=== PATIENT | female | born 1965 | race Two or more races ===

== ENCOUNTER 2016-07-12 14:35 | Emergency (ER) | payer MEDICAID ==
[~2016-07-12] VITALS: Ht 157.5 cm; Wt 56.0 kg
[~2016-07-12 14:35] MED LIST: DIVA500T2 PO; INSU100V5 SQ-INSULIN; INSU100V8 SQ; LISI-167 PO; METF500T4 PO; RISP1TAB3 PO; TRAZ150T68 PO
[2016-07-12 14:44] VITALS: BP 143/52
[2016-07-12 15:19] LABS: HEMOGLOBIN 13.3 g/dL (11.7-16.4)
[2016-07-12 15:29] LABS: BLOOD UREA NITROGEN 22 mg/dL (7-18)
[2016-07-12 15:35] LABS: ACETAMINOPHEN < 2 mcg/mL (10-30); ASPARTATE AMINO TRANSFERASE 18 U/L (15-37)
== END 2016-07-12 16:21 | disposition home or self-care (01) ==
LOC: ED 16:14
DX: F32.9 Major depressive disorder, single episode, unspecified (principal); I10 Essential (primary) hypertension; F41.9 Anxiety disorder, unspecified; E11.65 Type 2 diabetes mellitus with hyperglycemia; F20.9 Schizophrenia, unspecified
CPT/HCPCS: 36415; 80053; 80307; 80329; 84703; 85025; 99284; G0480

== ENCOUNTER 2016-12-27 01:33 | Emergency (ER) | payer MEDICAID ==
[~2016-12-27] VITALS: Ht 157.5 cm; Wt 50.0 kg
[~2016-12-27 01:33] MED LIST changes: +TRAZ150T62 PO; -TRAZ150T68 PO
[2016-12-27 02:13] LABS: HEMATOCRIT 38.3 % (34.6-47.8); HEMOGLOBIN 12.7 g/dL (11.7-16.4); WHITE BLOOD COUNT 8.2 x10^3/uL (3.4-10)
[2016-12-27 02:22] LABS: ASPARTATE AMINO TRANSFERASE 21 U/L (15-37); BLOOD UREA NITROGEN 17 mg/dL (7-18)
[2016-12-27 02:43] LABS: DAU SCREEN DISCLAIMER
[2016-12-27 02:47] LABS: PATH.CAST-FLAG NOT PRESENT; SPERM-FLAG NOT PRESENT; SRC-FLAG NOT PRESENT; XTAL-FLAG NOT PRESENT; YLC-FLAG NOT PRESENT
[2016-12-27 04:50] VITALS: BP 122/65
== END 2016-12-27 04:57 | disposition home or self-care (01) ==
LOC: ED 02:05
DX: E11.649 Type 2 diabetes mellitus with hypoglycemia without coma (principal); F17.200 Nicotine dependence, unspecified, uncomplicated; Z88.0 Allergy status to penicillin
CPT/HCPCS: 36415; 80053; 80307; 81001; 82962; 85025; 99284; G0479

== ENCOUNTER 2017-02-22 08:52 | Emergency (ER) | payer MEDICAID ==
[~2017-02-22] VITALS: Ht 157.5 cm; Wt 52.6 kg
[2017-02-22 08:54] VITALS: BP 150/83
[2017-02-22 09:56] LABS: HEMATOCRIT 43.3 % (34.6-47.8); HEMOGLOBIN 14.9 g/dL (11.7-16.4)
[2017-02-22 10:07] LABS: BLOOD UREA NITROGEN 14 mg/dL (7-18)
[2017-02-22] MEDS ORDERED: SODIUM CHLORIDE 0.9% 1,000ML IVBOLUS ONE (10:30)
== END 2017-02-22 12:09 | disposition home or self-care (01) ==
LOC: ED 11:33
DX: M25.551 Pain in right hip (principal); E11.65 Type 2 diabetes mellitus with hyperglycemia; F20.9 Schizophrenia, unspecified; F31.9 Bipolar disorder, unspecified; G89.29 Other chronic pain; Z91.14 Patient's other noncompliance with medication regimen
CPT/HCPCS: 36415; 73502; 80048; 82040; 85025; 96360; 99285; J7030

== ENCOUNTER 2017-02-25 12:04 | Emergency (ER) | payer MEDICAID ==
[~2017-02-25] VITALS: Ht 157.5 cm; Wt 52.5 kg
[2017-02-25] MEDS ORDERED: PLEASE ENTER HEIGHT AND WEIGHT MC SCH (12:30)
[2017-02-25] MEDS ORDERED: SODIUM CHLORIDE FLUSH 10ML SYR IVF ONE (12:30)
[2017-02-25] MEDS ORDERED: SODIUM CHLORIDE 0.9% 1,000ML IVBOLUS ONE (12:30)
[2017-02-25 12:56] LABS: HEMATOCRIT 45.6 % (34.6-47.8); HEMOGLOBIN 15.5 g/dL (11.7-16.4); WHITE BLOOD COUNT 6.6 x10^3/uL (3.4-10)
[2017-02-25 13:07] LABS: BLOOD UREA NITROGEN 20 mg/dL (7-18)
[2017-02-25 13:53] VITALS: BP 148/72
[2017-02-25] MEDS ORDERED: INSULIN SINGLE DOSE, ER SQ-INSULIN ONE (14:00)
[2017-02-25] MEDS ORDERED: INSULIN REGULAR 100 UNITS/ML, 3ML VIAL ONE (14:22)
== END 2017-02-25 14:45 | disposition home or self-care (01) ==
LOC: ED 14:39
DX: F31.9 Bipolar disorder, unspecified (principal); E10.65 Type 1 diabetes mellitus with hyperglycemia; F41.9 Anxiety disorder, unspecified; F20.9 Schizophrenia, unspecified
CPT/HCPCS: 36415; 80048; 82040; 82962; 85025; 96360; 96361; 99285; J7030

== ENCOUNTER 2017-03-05 19:16 | Observation (INO) | payer MEDICAID ==
[~2017-03-05] VITALS: Ht 157.5 cm; Wt 55.1 kg
[2017-03-05] MEDS ORDERED: SODIUM CHLORIDE 0.9% 1,000 ML IV ONE (19:42)
[2017-03-05] MEDS ORDERED: ONDANSETRON 2MG/ML, 2ML IVPush ONE (20:00)
[2017-03-05] MEDS ORDERED: SODIUM CHLORIDE 0.9% 1,000ML IVBOLUS ONE (20:00)
[2017-03-05] MEDS ORDERED: SODIUM CHLORIDE FLUSH 10ML SYR IVF ONE (20:00)
[2017-03-05 20:07] LABS: HEMATOCRIT 41.7 % (34.6-47.8); HEMOGLOBIN 13.7 g/dL (11.7-16.4); WHITE BLOOD COUNT 6.1 x10^3/uL (3.4-10)
[2017-03-05 20:16] LABS: ASPARTATE AMINO TRANSFERASE 26 U/L (15-37); BLOOD UREA NITROGEN 19 mg/dL (7-18)
[2017-03-05 20:22] LABS: ACETAMINOPHEN < 2 mcg/mL (10-30)
[2017-03-05 20:23] LABS: DAU SCREEN DISCLAIMER
[2017-03-05 20:30] LABS: PATH.CAST-FLAG NOT PRESENT; SPERM-FLAG NOT PRESENT; SRC-FLAG NOT PRESENT; XTAL-FLAG NOT PRESENT; YLC-FLAG NOT PRESENT
[2017-03-05] MEDS ORDERED: ZIPRASIDONE 20 MG INJ IM ONE ×2 (21:57→22:00)
[2017-03-05] MEDS ORDERED: ONDANSETRON 2MG/ML, 2ML ONE (22:41)
[2017-03-05] MEDS ORDERED: OMNIPAQUE 350 MG/ML, 100ML BOTTLE ONE (23:12)
[2017-03-05] MEDS ORDERED: ACETAMINOPHEN 325 MG TABLET PO PRN (23:30)
[2017-03-05] MEDS ORDERED: ONDANSETRON ODT 4 MG PO PRN (23:30)
[2017-03-05] MEDS ORDERED: INSULIN ASPART 100 UNITS/ML, PEN SQ-INSULIN SCH (23:30)
[2017-03-05] MEDS: SODIUM CHLORIDE 0.9% 1,000 ML IV SCH (23:30)
[2017-03-06 00:10] VITALS: BP 156/92
[2017-03-06 00:30] VITALS: BP 156/92
[2017-03-06] MEDS: SODIUM CHLORIDE 0.9% 1,000 ML IV SCH (00:31)
[2017-03-06] MEDS: INSULIN DETEMIR 100 UNITS/ML, PEN SQ-INSULIN SCH ×2 (01:12→21:07)
[2017-03-06 06:14] LABS: HEMATOCRIT 42.7 % (34.6-47.8); HEMOGLOBIN 14.8 g/dL (11.7-16.4); WHITE BLOOD COUNT 5.6 x10^3/uL (3.4-10)
[2017-03-06 06:35] LABS: BLOOD UREA NITROGEN 16 mg/dL (7-18)
[2017-03-06 06:40] LABS: ASPARTATE AMINO TRANSFERASE 21 U/L (15-37)
[2017-03-06] MEDS: INSULIN REGULAR 100 UNITS/ML, 3ML VIAL SQ-INSULIN SCH ×4 (07:00→21:08)
[2017-03-06 08:00] VITALS: BP 105/64
[2017-03-06] MEDS: DIVALPROEX 500 MG TABLET.DR PO SCH ×2 (08:51→21:03)
[2017-03-06] MEDS: metFORMIN 500 MG TABLET PO SCH ×2 (08:51→21:03)
[2017-03-06 12:42] LABS: ASPARTATE AMINO TRANSFERASE 17 U/L (15-37); BLOOD UREA NITROGEN 17 mg/dL (7-18)
[2017-03-06] MEDS ORDERED: RISPERIDONE 1 MG TABLET ONE (19:09)
[2017-03-06 19:15] VITALS: BP 133/71
[2017-03-06] MEDS: TRAZODONE 150MG TABLET PO SCH (21:03)
[2017-03-06] MEDS: RISPERIDONE 1 MG TABLET PO SCH (21:03)
[2017-03-07] MEDS: INSULIN REGULAR 100 UNITS/ML, 3ML VIAL SQ-INSULIN SCH (07:00)
[2017-03-07 07:47] VITALS: BP 128/76
[2017-03-07] MEDS: metFORMIN 500 MG TABLET PO SCH ×2 (08:51→21:22)
[2017-03-07] MEDS: DIVALPROEX 500 MG TABLET.DR PO SCH ×2 (08:51→21:23)
[2017-03-07] MEDS: INSULIN ASPART 100 UNITS/ML, PEN SQ-INSULIN SCH ×3 (12:15→21:27)
[2017-03-07 19:38] VITALS: BP 126/58
[2017-03-07] MEDS: TRAZODONE 150MG TABLET PO SCH (21:22)
[2017-03-07] MEDS: RISPERIDONE 1 MG TABLET PO SCH (21:23)
[2017-03-07] MEDS: INSULIN DETEMIR 100 UNITS/ML, PEN SQ-INSULIN SCH (21:24)
[2017-03-08] MEDS: INSULIN ASPART 100 UNITS/ML, PEN SQ-INSULIN SCH ×4 (07:00→20:58)
[2017-03-08 08:00] VITALS: BP 121/63
[2017-03-08] MEDS: metFORMIN 500 MG TABLET PO SCH ×2 (08:38→21:00)
[2017-03-08] MEDS: DIVALPROEX 500 MG TABLET.DR PO SCH ×2 (08:38→21:00)
[2017-03-08] MEDS ORDERED: SENNA/DOCUSATE TABLET PO PRN (09:30)
[2017-03-08] MEDS: POLYETHYLENE GLYCOL 17 GM PACKET PO SCH (10:30)
[2017-03-08 18:12] LABS: HEMATOCRIT 38.8 % (34.6-47.8); WHITE BLOOD COUNT 5.6 x10^3/uL (3.4-10)
[2017-03-08 18:23] LABS: BLOOD UREA NITROGEN 27 mg/dL (7-18)
[2017-03-08 19:42] VITALS: BP 171/68
[2017-03-08] MEDS: INSULIN DETEMIR 100 UNITS/ML, PEN SQ-INSULIN SCH (20:59)
[2017-03-08] MEDS: RISPERIDONE 1 MG TABLET PO SCH (21:00)
[2017-03-08] MEDS: TRAZODONE 150MG TABLET PO SCH (21:00)
[2017-03-09 07:00] VITALS: BP 124/66
[2017-03-09] MEDS: INSULIN ASPART 100 UNITS/ML, PEN SQ-INSULIN SCH ×4 (07:00→20:52)
[2017-03-09] MEDS: metFORMIN 500 MG TABLET PO SCH ×2 (08:25→20:54)
[2017-03-09] MEDS: DIVALPROEX 500 MG TABLET.DR PO SCH ×2 (08:25→20:54)
[2017-03-09] MEDS: POLYETHYLENE GLYCOL 17 GM PACKET PO SCH (08:28)
[2017-03-09 19:33] VITALS: BP 147/73
[2017-03-09] MEDS: INSULIN DETEMIR 100 UNITS/ML, PEN SQ-INSULIN SCH (20:52)
[2017-03-09] MEDS: TRAZODONE 150MG TABLET PO SCH (20:54)
[2017-03-09] MEDS: RISPERIDONE 1 MG TABLET PO SCH (20:54)
[2017-03-10] MEDS: INSULIN ASPART 100 UNITS/ML, PEN SQ-INSULIN SCH ×2 (07:00→11:00)
[2017-03-10 07:39] VITALS: BP 116/55
[2017-03-10] MEDS: POLYETHYLENE GLYCOL 17 GM PACKET PO SCH (09:00)
[2017-03-10] MEDS: DIVALPROEX 500 MG TABLET.DR PO SCH (09:00)
[2017-03-10] MEDS: metFORMIN 500 MG TABLET PO SCH (09:00)
== END 2017-03-10 12:45 ==
LOC: ED 21:52 → EDIP 21:57 → INTOOBSV 21:57 → ED 22:03 → 3E 03-06 00:03
PROVIDERS: ADMIT Hospitalist; ATTEND Hospitalist
DX: R45.851 Suicidal ideations (principal); E11.65 Type 2 diabetes mellitus with hyperglycemia; I10 Essential (primary) hypertension; F31.9 Bipolar disorder, unspecified; J45.909 Unspecified asthma, uncomplicated; E44.1 Mild protein-calorie malnutrition; F20.9 Schizophrenia, unspecified; F17.210 Nicotine dependence, cigarettes, uncomplicated; Z79.4 Long term (current) use of insulin
CPT/HCPCS: 36415; 71010; 74177; 80048; 80053; 80061; 80307; 80329; 81001; 82010; 82962; 83036; 83690; 84703; 85025; 93005; 96361; 96372; 96374; 99285; G0378; J1815; J2405; J3486; J7030; Q9967; G0479; G0480

== ENCOUNTER 2017-03-24 08:55 | Emergency (ER) | payer MEDICAID ==
[~2017-03-24] VITALS: Ht 157.5 cm; Wt 55.3 kg
[2017-03-24 09:13] VITALS: BP 101/65
[2017-03-24 10:15] LABS: HEMATOCRIT 44.7 % (34.6-47.8); WHITE BLOOD COUNT 12.5 x10^3/uL (3.4-10)
[2017-03-24 10:26] LABS: ASPARTATE AMINO TRANSFERASE 24 U/L (15-37); BLOOD UREA NITROGEN 16 mg/dL (7-18)
== END 2017-03-24 11:19 | disposition home or self-care (01) ==
LOC: ED 10:06
DX: E11.65 Type 2 diabetes mellitus with hyperglycemia (principal)
CPT/HCPCS: 36415; 80053; 82962; 85025; 99284

== ENCOUNTER 2017-11-29 01:51 | Emergency (ER) | payer MEDICAID ==
[~2017-11-29] VITALS: Ht 157.5 cm; Wt 50.0 kg
[~2017-11-29 01:51] MED LIST changes: +INSU100C SQ-INSULIN; +INSU100V13 SC; +LINA5TAB PO; -METF500T4 PO; +METF500T5 PO; +ZIPR60CA3 PO
[2017-11-29 01:53] VITALS: BP 188/90
[2017-11-29] MEDS ORDERED: IBUPROFEN 200 MG TABLET ONE (03:51)
[2017-11-29] MEDS ORDERED: IBUPROFEN 200 MG TABLET PO ONE (04:00)
== END 2017-11-29 04:15 | disposition home or self-care (01) ==
LOC: ED 04:09
DX: S42.291A Other displaced fracture of upper end of right humerus, initial encounter for closed fracture (principal); E11.9 Type 2 diabetes mellitus without complications; F31.9 Bipolar disorder, unspecified; F20.9 Schizophrenia, unspecified; X58.XXXA Exposure to other specified factors, initial encounter; Y93.89 Activity, other specified; Y99.8 Other external cause status; Y92.89 Other specified places as the place of occurrence of the external cause
CPT/HCPCS: 29105; 29505; 99284

== ENCOUNTER 2017-12-27 19:44 | Emergency (ER) | payer MEDICAID ==
[~2017-12-27] VITALS: Ht 152.4 cm; Wt 40.0 kg
[~2017-12-27 19:44] MED LIST changes: +METF500T17 PO; -METF500T5 PO
[2017-12-27] MEDS ORDERED: PLEASE ENTER HEIGHT AND WEIGHT MC SCH (20:00)
[2017-12-27] MEDS ORDERED: SODIUM CHLORIDE FLUSH 10ML SYR IVF ONE (20:00)
[2017-12-27 20:13] LABS: BASOPHILS # (AUTO) 0.02 x10^3/uL (0-0.1); BASOPHILS % (AUTO) 0 % (0-1); EOSINOPHILS # (AUTO) 0.05 x10^3/uL (0-0.4); EOSINOPHILS % (AUTO) 1 % (1-7); LYMPHOCYTES # (AUTO) 1.82 x10^3/uL (1-3.4); LYMPHOCYTES % (AUTO) 20 % (22-44); MD NO; MEAN CORPUSCULAR HEMOGLOBIN 31.3 pg (27.0-34.8); MEAN CORPUSCULAR HGB CONC 33.9 g/dL (32.4-35.8); MEAN CORPUSCULAR VOLUME 92.5 fL (80-100); MEAN PLATELET VOLUME 6.7 fL (7.4-10.4); MONOCYTES # (AUTO) 0.51 x10^3/uL (0.2-0.8); MONOCYTES % (AUTO) 6 % (2-9); NEUTROPHILS # (AUTO) 6.59 x10^3/uL (1.8-6.8); NEUTROPHILS % (AUTO) 73 % (42-75); PLATELET COUNT 427 x10^3/uL (130-400); RED BLOOD COUNT 4.32 x10^6/uL (3.82-5.3); RED CELL DISTRIBUTION WIDTH 15.3 % (9.6-15.2)
[2017-12-27 20:26] LABS: ALBUMIN 3.4 g/dL (3.4-5.0); ANION GAP 6 mmol/L (5-15); CHLORIDE 107 mmol/L (98-107)
[2017-12-27 20:29] LABS: ALANINE AMINOTRANSFERASE 29 U/L (12-78); ALKALINE PHOSPHATASE 164 U/L (45-117); BILIRUBIN,TOTAL 0.2 mg/dL (0.2-1.0); CREATININE 1.34 mg/dL (0.55-1.02); TOTAL PROTEIN 7.1 g/dL (6.4-8.2)
[2017-12-27 20:31] LABS: CULTURE INDICATED? YES; MICROSCOPIC INDICATED
[2017-12-27 21:30] VITALS: BP 103/58
== END 2017-12-27 21:32 | disposition home or self-care (01) ==
LOC: ED 21:25
DX: R10.13 Epigastric pain (principal); E11.65 Type 2 diabetes mellitus with hyperglycemia; I10 Essential (primary) hypertension; F31.9 Bipolar disorder, unspecified; F20.9 Schizophrenia, unspecified; F17.200 Nicotine dependence, unspecified, uncomplicated; Z90.710 Acquired absence of both cervix and uterus; Z88.0 Allergy status to penicillin; R11.2 Nausea with vomiting, unspecified
CPT/HCPCS: 36415; 80053; 81001; 85025; 87086; 99284